=== PATIENT | female | born 1965 ===

== ENCOUNTER 2018-07-28 09:56 | Outpatient (CLI) | payer OTHER ==
[~2018-07-28] VITALS: Ht 172.7 cm; Wt 108.9 kg
[2018-07-28] MEDS ORDERED: AFRIN15 ML NASAL (12:45)
[2018-07-28] MEDS ORDERED: AYR SALINE NA14.1 GM NASAL (12:45)
== END 2018-07-28 10:15 | disposition home or self-care (01) ==
LOC: OFIC 805 09:56
DX: E66.8 Other obesity (principal); J31.0 Chronic rhinitis; J34.2 Deviated nasal septum; R04.0 Epistaxis; J35.1 Hypertrophy of tonsils